=== PATIENT | male | born 1945 | race Caucasian/White ===

== ENCOUNTER 2022-08-01 16:10 | Inpatient (IN) | payer OTHER ==
[2022-08-01 16:28] VITALS: BMI 23.6
[2022-08-01 17:23] LABS: BASO % 0.8 % (0-2.0); EOS % 1.8 % (0-4.5); HEMATOCRIT 37.9 % (35.4-49); HEMOGLOBIN 12.2 GM/dL (11.7-16.9); LYMPH % 30.6 % (8-40); MCH 28.8 pg (25.7-33.7); MCHC 32.3 g/dl (32.0-35.9); MONO % 9.8 % (3.8-10.2); PLATELET COUNT 271 10^3/uL (134-434); RBC 4.26 M/mm3 (4.00-5.60); WHITE BLOOD COUNT 8.6 K/mm3 (4.0-10.0)
[2022-08-01 17:44] LABS: CHLORIDE 98 mmol/L (98-107); SODIUM 132 mmol/L (136-145)
[2022-08-01 17:47] LABS: CALCIUM 9.3 mg/dL (8.5-10.1)
[2022-08-01 17:48] LABS: ALBUMIN 3.3 g/dl (3.4-5.0); ANION GAP 9 MMOL/L (8-16); BLOOD UREA NITROGEN 81.1 mg/dL (7-18); CO2 25 mmol/L (21-32)
[2022-08-01 17:51] LABS: CREATININE 2.2 mg/dL (0.55-1.3); SGOT/AST 9 U/L (15-37); SGPT/ALT 16 U/L (13-61)
[2022-08-01 17:53] LABS: BILIRUBIN,TOTAL 0.4 mg/dL (0.2-1); TOT PROT 7.4 g/dl (6.4-8.2)
[2022-08-01 17:54] LABS: ALK PHOS 149 U/L (45-117)
[2022-08-01 17:55] LABS: GLUCOSE,RANDOM 683 mg/dL (74-106)
[2022-08-01] MEDS ORDERED: SODIUM CHLORIDE 0.9% 1000 ML INFUS.BAG IV ONE (17:57)
[2022-08-01] MEDS ORDERED: CALCIUM GLUCONATE 10% - 1,000 MG/10 ML VIAL IVPB ONE (18:05)
[2022-08-01] MEDS ORDERED: INSULIN REGULAR HUMAN 100 UNITS/ML *VIAL IVPUSH ONE (18:05)
[2022-08-01] MEDS ORDERED: SODIUM ZIRCONIUM CYCLOSILICATE (LOKELMA) 5 GM PACKET ONE (18:15)
[2022-08-01] MEDS ORDERED: CALCIUM GLUC IN NACL, ISO-OSM 1 GM/50 ML BAG IVPB ONE (18:16)
[2022-08-01 18:30] LABS: VENOUS BASE EXCESS -3.7 mmol/L (-2-2); VENOUS O2 SATURATION 30.9 % (70-80); VENOUS PH 7.33 (7.310-7.410)
[2022-08-01] MEDS: SODIUM ZIRCONIUM CYCLOSILICATE (LOKELMA) 5 GM PACKET PO SCH (18:36)
[2022-08-01 18:37] LABS: CHOLESTEROL 223 mg/dL (50-200)
[2022-08-01 18:38] LABS: TRIGLYCERIDES 352 mg/dL (0-150)
[2022-08-01 18:39] LABS: LDL CHOLESTEROL (ONLY SJRH) 138 mg/dL (5-100)
[2022-08-01 18:41] LABS: HDL CHOLESTEROL 33 mg/dL (40-60)
[2022-08-02 01:50] LABS: INR 0.99 (0.83-1.09); PROTHROMBIN TIME (PATIENT) 11.4 SEC (9.7-13.0)
[2022-08-02 01:53] LABS: ACTIVATED PTT 31.1 SECONDS (25.2-36.5)
[2022-08-02 01:56] LABS: CALCIUM 9.5 mg/dL (8.5-10.1)
[2022-08-02 01:57] LABS: BLOOD UREA NITROGEN 70.4 mg/dL (7-18); MAGNESIUM 2.4 mg/dL (1.8-2.4)
[2022-08-02 02:00] LABS: CREATININE 1.7 mg/dL (0.55-1.3); PHOSPHOROUS 3.6 mg/dL (2.5-4.9)
[2022-08-02] MEDS: INSULIN SLIDING SCALE (NOVOLOG) 1 VIAL SQ SCH ×4 (02:06→23:08)
[2022-08-02] MEDS ORDERED: LACTULOSE 20 GM/30 ML UDC (FOR ORAL USE ONLY) PO PRN (07:28)
[2022-08-02 09:35] LABS: EPI CELLS 13 /uL (0-25.1); HYALINE CASTS 2 /uL (0-3.1); PH,URINE 8.5 (5.0-8.0); URINE APPEARANCE TURBID; URINE BACTERIA >9,000 /uL (0-1359); URINE BILIRUBIN NEGATIVE (NEGATIVE); URINE COLOR YELLOW; URINE GLUCOSE (UA) 2+ (NEGATIVE); URINE KETONE NEGATIVE (NEGATIVE); URINE LEUK ESTERASE 3+ (NEGATIVE); URINE NITRITE NEGATIVE (NEGATIVE); URINE PROTEIN 2+ (NEGATIVE); URINE RBC 88 /uL (0-23.9); URINE UROBILINOGEN 0.2 mg/dL (0.2-1.0); URINE WBC 2418 /uL (0-25.8)
[2022-08-02 10:12] LABS: URINE CRYSTALS CA OXALATE FEW /hpf
[2022-08-02] MEDS: FAMOTIDINE 20 MG TABLET PO SCH (15:11)
[2022-08-02] MEDS: TAMSULOSIN HCL 0.4 MG CAP PO SCH (15:11)
[2022-08-02] MEDS: MULTIVITAMINS THER W-MINERALS COMBO TABLET (FP) PO SCH (15:11)
[2022-08-02] MEDS: CHOLECALCIFEROL (VIT D3) 1,000 UNIT (25 MCG) TABLET PO SCH (15:11)
[2022-08-02] MEDS: SERTRALINE HCL 50 MG TABLET (FP) PO SCH (15:12)
[2022-08-02] MEDS: FERROUS SO4 325 MG TABLET (FP) PO SCH (15:12)
[2022-08-02] MEDS: FINASTERIDE 5 MG TABLET (FP) PO SCH (15:12)
[2022-08-02] MEDS: ISOSORBIDE MONONITRATE 30 MG TAB.SR.24H (FP) PO SCH (15:12)
[2022-08-02] MEDS: metoPROLOL SUCCINATE 25 MG TAB.SR.24H (FP) PO SCH (15:12)
[2022-08-02] MEDS: ASPIRIN 81 MG CHEWABLE TABLETS PO SCH (15:12)
[2022-08-02] MEDS: DOCUSATE SODIUM 100 MG CAPSULE (FP) PO SCH (15:13)
[2022-08-02] MEDS: SODIUM ZIRCONIUM CYCLOSILICATE (LOKELMA) 5 GM PACKET PO SCH (15:49)
[2022-08-02] MEDS: MAGNESIUM HYDROX 2400MG/30ML ORAL SUSPENSION 30 ML CUP PO SCH ×2 (15:53→23:07)
[2022-08-02] MEDS: ASCORBIC ACID 500 MG TABLET (FP) PO SCH ×2 (15:53→23:08)
[2022-08-02] MEDS: HEPARIN NA (PORCINE) 5,000 UNITS/ML 1ML VIAL SQ SCH ×2 (15:53→23:05)
[2022-08-02] MEDS: ATORVASTATIN CA 20 MG TABLET (FP) PO SCH (23:06)
[2022-08-02] MEDS: MELATONIN 5 MG TABLETS PO SCH (23:07)
[2022-08-03] MEDS: INSULIN SLIDING SCALE (NOVOLOG) 1 VIAL SQ SCH ×4 (06:35→22:59)
[2022-08-03] MEDS: TAMSULOSIN HCL 0.4 MG CAP PO SCH (08:30)
[2022-08-03] MEDS: SODIUM CHLORIDE 1,000 ML IV SCH ×2 (08:45→11:50)
[2022-08-03] MEDS: CEFTRIAXONE 1 GM in DEXTROSE 5%-WATER - 50 ML IVPB SCH ×2 (08:46→11:51)
[2022-08-03] MEDS: FINASTERIDE 5 MG TABLET (FP) PO SCH (10:30)
[2022-08-03] MEDS: ASCORBIC ACID 500 MG TABLET (FP) PO SCH ×2 (10:30→23:01)
[2022-08-03] MEDS: ISOSORBIDE MONONITRATE 30 MG TAB.SR.24H (FP) PO SCH (10:30)
[2022-08-03] MEDS: FERROUS SO4 325 MG TABLET (FP) PO SCH (10:31)
[2022-08-03] MEDS: FAMOTIDINE 20 MG TABLET PO SCH (10:31)
[2022-08-03] MEDS: metoPROLOL SUCCINATE 25 MG TAB.SR.24H (FP) PO SCH (10:31)
[2022-08-03] MEDS: ASPIRIN 81 MG CHEWABLE TABLETS PO SCH (10:31)
[2022-08-03] MEDS: MULTIVITAMINS THER W-MINERALS COMBO TABLET (FP) PO SCH (10:31)
[2022-08-03] MEDS: SERTRALINE HCL 50 MG TABLET (FP) PO SCH (10:31)
[2022-08-03] MEDS: CHOLECALCIFEROL (VIT D3) 1,000 UNIT (25 MCG) TABLET PO SCH (10:31)
[2022-08-03] MEDS: MAGNESIUM HYDROX 2400MG/30ML ORAL SUSPENSION 30 ML CUP PO SCH ×2 (10:32→23:00)
[2022-08-03] MEDS: SODIUM ZIRCONIUM CYCLOSILICATE (LOKELMA) 5 GM PACKET PO SCH (10:32)
[2022-08-03] MEDS: DOCUSATE SODIUM 100 MG CAPSULE (FP) PO SCH (10:32)
[2022-08-03] MEDS: HEPARIN NA (PORCINE) 5,000 UNITS/ML 1ML VIAL SQ SCH ×2 (10:32→22:50)
[2022-08-03] MEDS: ATORVASTATIN CA 20 MG TABLET (FP) PO SCH (22:50)
[2022-08-03] MEDS: MELATONIN 5 MG TABLETS PO SCH (22:51)
[2022-08-03] MEDS: INSULIN (LEVEMIR) 100 UNITS/ML UNITS SQ SCH (23:00)
[2022-08-04] MEDS: CEFTRIAXONE 1 GM in DEXTROSE 5%-WATER - 50 ML IVPB SCH ×2 (07:00→07:15)
[2022-08-04] MEDS: INSULIN SLIDING SCALE (NOVOLOG) 1 VIAL SQ SCH ×3 (07:12→17:23)
[2022-08-04] MEDS: INSULIN (LEVEMIR) 100 UNITS/ML UNITS SQ SCH (07:12)
[2022-08-04] MEDS: SODIUM CHLORIDE 1,000 ML IV SCH ×2 (08:26→22:00)
[2022-08-04] MEDS: FINASTERIDE 5 MG TABLET (FP) PO SCH (08:59)
[2022-08-04] MEDS: CHOLECALCIFEROL (VIT D3) 1,000 UNIT (25 MCG) TABLET PO SCH (08:59)
[2022-08-04] MEDS: FERROUS SO4 325 MG TABLET (FP) PO SCH (08:59)
[2022-08-04] MEDS: TAMSULOSIN HCL 0.4 MG CAP PO SCH (08:59)
[2022-08-04] MEDS: HEPARIN NA (PORCINE) 5,000 UNITS/ML 1ML VIAL SQ SCH ×2 (09:00→21:33)
[2022-08-04] MEDS: MULTIVITAMINS THER W-MINERALS COMBO TABLET (FP) PO SCH (09:00)
[2022-08-04] MEDS: FAMOTIDINE 20 MG TABLET PO SCH (09:00)
[2022-08-04] MEDS: SERTRALINE HCL 50 MG TABLET (FP) PO SCH (09:00)
[2022-08-04] MEDS: metoPROLOL SUCCINATE 25 MG TAB.SR.24H (FP) PO SCH (09:00)
[2022-08-04] MEDS: ASPIRIN 81 MG CHEWABLE TABLETS PO SCH (09:00)
[2022-08-04] MEDS: ISOSORBIDE MONONITRATE 30 MG TAB.SR.24H (FP) PO SCH (09:00)
[2022-08-04] MEDS: ASCORBIC ACID 500 MG TABLET (FP) PO SCH ×2 (09:00→21:33)
[2022-08-04] MEDS: MAGNESIUM HYDROX 2400MG/30ML ORAL SUSPENSION 30 ML CUP PO SCH ×2 (09:01→21:33)
[2022-08-04] MEDS: DOCUSATE SODIUM 100 MG CAPSULE (FP) PO SCH (09:01)
[2022-08-04] MEDS: MELATONIN 5 MG TABLETS PO SCH (21:33)
[2022-08-04] MEDS: ATORVASTATIN CA 20 MG TABLET (FP) PO SCH (21:33)
[2022-08-05] MEDS: CEFTRIAXONE 1 GM in DEXTROSE 5%-WATER - 50 ML IVPB SCH (06:50)
[2022-08-05] MEDS: INSULIN SLIDING SCALE (NOVOLOG) 1 VIAL SQ SCH ×3 (06:51→17:37)
[2022-08-05] MEDS: INSULIN (LEVEMIR) 100 UNITS/ML UNITS SQ SCH (07:07)
[2022-08-05] MEDS: TAMSULOSIN HCL 0.4 MG CAP PO SCH (08:18)
[2022-08-05 08:20] LABS: BLOOD UREA NITROGEN 46.5 mg/dL (7-18); CALCIUM 8.9 mg/dL (8.5-10.1); CREATININE 1.3 mg/dL (0.55-1.3)
[2022-08-05 08:21] LABS: ALBUMIN 2.8 g/dl (3.4-5.0)
[2022-08-05 08:22] LABS: BILIRUBIN,TOTAL 0.2 mg/dL (0.2-1); TOT PROT 6.2 g/dl (6.4-8.2)
[2022-08-05 08:24] LABS: EOS % 3.1 % (0-4.5); HEMATOCRIT 34.4 % (35.4-49); HEMOGLOBIN 10.8 GM/dL (11.7-16.9); LYMPH % 46.2 % (8-40); MCHC 31.4 g/dl (32.0-35.9); MEAN CELL VOLUME 89.1 fl (80-96); MEAN PLT VOLUME 9.4 fl (7.5-11.1); MONO % 9.4 % (3.8-10.2); NEUT % 40.3 % (42.8-82.8); PLATELET COUNT 227 10^3/uL (134-434); RBC 3.85 M/mm3 (4.00-5.60); RDW 15.3 % (11.9-15.9); WHITE BLOOD COUNT 7.4 K/mm3 (4.0-10.0)
[2022-08-05] MEDS: ASCORBIC ACID 500 MG TABLET (FP) PO SCH ×2 (10:29→21:24)
[2022-08-05] MEDS: CHOLECALCIFEROL (VIT D3) 1,000 UNIT (25 MCG) TABLET PO SCH (10:29)
[2022-08-05] MEDS: ISOSORBIDE MONONITRATE 30 MG TAB.SR.24H (FP) PO SCH (10:29)
[2022-08-05] MEDS: MULTIVITAMINS THER W-MINERALS COMBO TABLET (FP) PO SCH (10:29)
[2022-08-05] MEDS: ASPIRIN 81 MG CHEWABLE TABLETS PO SCH (10:29)
[2022-08-05] MEDS: FERROUS SO4 325 MG TABLET (FP) PO SCH (10:29)
[2022-08-05] MEDS: DOCUSATE SODIUM 100 MG CAPSULE (FP) PO SCH (10:30)
[2022-08-05] MEDS: FINASTERIDE 5 MG TABLET (FP) PO SCH (10:30)
[2022-08-05] MEDS: FAMOTIDINE 20 MG TABLET PO SCH (10:30)
[2022-08-05] MEDS: SERTRALINE HCL 50 MG TABLET (FP) PO SCH (10:30)
[2022-08-05] MEDS: MAGNESIUM HYDROX 2400MG/30ML ORAL SUSPENSION 30 ML CUP PO SCH ×2 (10:31→21:24)
[2022-08-05] MEDS: HEPARIN NA (PORCINE) 5,000 UNITS/ML 1ML VIAL SQ SCH ×2 (10:31→21:24)
[2022-08-05] MEDS: metoPROLOL SUCCINATE 25 MG TAB.SR.24H (FP) PO SCH (13:15)
[2022-08-05] MEDS: SODIUM CHLORIDE 0.45% 1,000 ML IV SCH (21:19)
[2022-08-05] MEDS: ATORVASTATIN CA 20 MG TABLET (FP) PO SCH (21:24)
[2022-08-05] MEDS: MELATONIN 5 MG TABLETS PO SCH (21:24)
[2022-08-05 23:58] VITALS: RESP 20
[2022-08-06] MEDS: CEFTRIAXONE 1 GM in DEXTROSE 5%-WATER - 50 ML IVPB SCH (06:24)
[2022-08-06] MEDS: INSULIN SLIDING SCALE (NOVOLOG) 1 VIAL SQ SCH ×3 (06:46→16:45)
[2022-08-06] MEDS: INSULIN (LEVEMIR) 100 UNITS/ML UNITS SQ SCH (06:46)
[2022-08-06] MEDS: FINASTERIDE 5 MG TABLET (FP) PO SCH (10:20)
[2022-08-06] MEDS: FERROUS SO4 325 MG TABLET (FP) PO SCH (10:20)
[2022-08-06] MEDS: TAMSULOSIN HCL 0.4 MG CAP PO SCH (10:21)
[2022-08-06] MEDS: ASPIRIN 81 MG CHEWABLE TABLETS PO SCH (10:21)
[2022-08-06] MEDS: ASCORBIC ACID 500 MG TABLET (FP) PO SCH ×2 (10:21→22:04)
[2022-08-06] MEDS: SERTRALINE HCL 50 MG TABLET (FP) PO SCH (10:21)
[2022-08-06] MEDS: CHOLECALCIFEROL (VIT D3) 1,000 UNIT (25 MCG) TABLET PO SCH (10:22)
[2022-08-06] MEDS: ISOSORBIDE MONONITRATE 30 MG TAB.SR.24H (FP) PO SCH (10:22)
[2022-08-06] MEDS: MULTIVITAMINS THER W-MINERALS COMBO TABLET (FP) PO SCH (10:23)
[2022-08-06] MEDS: FAMOTIDINE 20 MG TABLET PO SCH (10:23)
[2022-08-06] MEDS: HEPARIN NA (PORCINE) 5,000 UNITS/ML 1ML VIAL SQ SCH ×2 (10:23→22:03)
[2022-08-06] MEDS: DOCUSATE SODIUM 100 MG CAPSULE (FP) PO SCH (10:23)
[2022-08-06] MEDS: MAGNESIUM HYDROX 2400MG/30ML ORAL SUSPENSION 30 ML CUP PO SCH ×2 (10:23→22:12)
[2022-08-06] MEDS: ATORVASTATIN CA 20 MG TABLET (FP) PO SCH (22:03)
[2022-08-06] MEDS: MELATONIN 5 MG TABLETS PO SCH (22:03)
[2022-08-06] MEDS: SODIUM CHLORIDE 0.45% 1,000 ML IV SCH (22:13)
[2022-08-07 05:31] VITALS: BP 133/67; PULSE 63; TEMP 97.9
[2022-08-07] MEDS: INSULIN SLIDING SCALE (NOVOLOG) 1 VIAL SQ SCH ×2 (06:18→12:46)
[2022-08-07] MEDS: INSULIN (LEVEMIR) 100 UNITS/ML UNITS SQ SCH (06:18)
[2022-08-07] MEDS: FAMOTIDINE 20 MG TABLET PO SCH (09:12)
[2022-08-07] MEDS: FINASTERIDE 5 MG TABLET (FP) PO SCH (09:12)
[2022-08-07] MEDS: ASPIRIN 81 MG CHEWABLE TABLETS PO SCH (09:12)
[2022-08-07] MEDS: CHOLECALCIFEROL (VIT D3) 1,000 UNIT (25 MCG) TABLET PO SCH (09:13)
[2022-08-07] MEDS: FERROUS SO4 325 MG TABLET (FP) PO SCH (09:13)
[2022-08-07] MEDS: MAGNESIUM HYDROX 2400MG/30ML ORAL SUSPENSION 30 ML CUP PO SCH (09:13)
[2022-08-07] MEDS: DOCUSATE SODIUM 100 MG CAPSULE (FP) PO SCH (09:13)
[2022-08-07] MEDS: SERTRALINE HCL 50 MG TABLET (FP) PO SCH (09:14)
[2022-08-07] MEDS: ASCORBIC ACID 500 MG TABLET (FP) PO SCH (09:14)
[2022-08-07] MEDS: MULTIVITAMINS THER W-MINERALS COMBO TABLET (FP) PO SCH (09:14)
[2022-08-07] MEDS: TAMSULOSIN HCL 0.4 MG CAP PO SCH (09:14)
[2022-08-07] MEDS: HEPARIN NA (PORCINE) 5,000 UNITS/ML 1ML VIAL SQ SCH (09:14)
== END 2022-08-07 14:05 | DRG 639 ==
LOC: JER 16:10 → JERBED 21:21 → J4W 08-02 12:35 → OBSVTOIN 08-03 13:35
PROVIDERS: ADMIT Internal Medicine; ATTEND Internal Medicine
DX: E11.65 Type 2 diabetes mellitus with hyperglycemia (principal); E87.5 Hyperkalemia; E11.51 Type 2 diabetes mellitus with diabetic peripheral angiopathy without gangrene; I10 Essential (primary) hypertension; F03.90 Unspecified dementia, unspecified severity, without behavioral disturbance, psychotic disturbance, mood disturbance, and anxiety; E78.00 Pure hypercholesterolemia, unspecified; I25.10 Atherosclerotic heart disease of native coronary artery without angina pectoris; E78.5 Hyperlipidemia, unspecified; I45.5 Other specified heart block; K21.9 Gastro-esophageal reflux disease without esophagitis
CPT/HCPCS: 36415; 70450-TC; 70551-TC; 71045-TC-FY; 72125-TC; 72170-TC-FY; 74230-TC-FY; 80048; 80053; 80061; 81003; 82010; 82803; 82962; 83036; 83735; 84100; 84443; 84484; 85025; 85610; 85730; 86850; 86900; 86901; 87086; 92611-GN; 93005; 93010; 93306-TC; 97116-GP; 97161-GP; 99285-25; C9803-CS; G0378; J1644; U0003; U0005